=== PATIENT | female | born 1960 | race Caucasian/White ===

== ENCOUNTER → 2018-06-07 | Outpatient (REF) | payer MEDICARE | LOC: M LAB LCGH 10:42 | PROVIDERS: ATTEND Surgery | DX: K81.0 Acute cholecystitis (principal) ==

== ENCOUNTER 2018-07-10 11:14 | Day surgery (SDC) | payer MEDICARE ==
[~2018-07-10] VITALS: Ht 157.5 cm; Wt 75.3 kg
[~2018-07-10 11:14] MED LIST: ACETAMINOPHEN 325 MG TAB PO PRN; BSS with VANC/TOB/EPI for EYE CASES IR ONE; BUPR200T PO; CYCLOPENTOLATE 2% OPHTH SOLN 2ML BTL OS ONE; CYMB1CAP5 PO; HEALON DUET PRO(HEALON 10MG/ML 0.55ML & HEALON ENDOCOAT 30MG/ML 0.85ML) As Ordered ONE; LEXA1TAB2 PO; LIDOCAINE 1% SDV 5 ML VIAL As Ordered ONE; LIDOCAINE 3.5 % 1ML OPHTH TOPICAL GEL OU ONE; META1TAB22 PO; MIDAZOLAM INJ 2 MG/2 ML VIAL (J2250) As Ordered ONE; MOXIFLOXACIN IN BSS 0.25MG/0.25ML INTRACAMERAL INJ (OR EYE ONLY)(J2280) As Ordered ONE; NEUR600T PO; OFLOXACIN 0.3 % (OCUFLOX) OPTH SOL 5ML OS ONE; PHENYLEPHRINE 2.5% OPHTH SOL 2ML OS ONE; PHENYLEPHRINE HCL 10 % OPHTH. SOL 5ML OS PRN; POVIDONE-IODINE 5% OPHTH PREP SOL 30ML As Ordered ONE; PROM12.56 PO; TIZA4TAB4 PO; TRIAMCINOLONE PRES FR 40 MG/ML 1ML(TRIESENCE)(OR EYE ONLY)(J3300 PER 1MG) As Ordered ONE; TROPICAMIDE 1% OPHTH SOLN 2ML OS ONE; ZANT300T9 PO
[2018-07-10] MEDS ORDERED: fentaNYL 100 MCG/2 ML INJECTION (J3010) As Ordered ONE (13:10)
[2018-07-10] MEDS ORDERED: ACETYLCHOLINE OPHTH SOLN 1% 2ML (MIOCHOL-E) As Ordered ONE (13:25)
[2018-07-10] MEDS ORDERED: AcetaZOLAMIDE 500 MG ER CAP PO ONE (14:00)
[2018-07-10] MEDS ORDERED: TRIMETHOBENZAMIDE 300 MG CAP PO PRN (14:00)
[2018-07-10 14:10] VITALS: BP 142/67
--- NOTE | 2018-07-10 14:22 | RO ---
DATE OF SURGERY: 07/10/2018 PREOPERATIVE DIAGNOSIS: Cataract left eye. POSTOPERATIVE DIAGNOSIS: Cataract left eye. PROCEDURE. Femtosecond laser with phacoemulsification and intraocular lens implantation with optiwave refractive analysis (ORA). SURGEON: Kimmy Greenberg MD MOTOR VEHICLE ASSEMBLER: None COMPLICATIONS: None. DESCRIPTION OF PROCEDURE: The patient was brought to the operating room and laid in the supine position. The eye was prepped and draped in a sterile fashion for ophthalmic surgery following which a lid speculum was placed. A sideport incision was then made, and EndoCoat was injected into the anterior chamber. A temporal clear corneal incision was made, followed by capsulorrhexis. This was followed by hydrodissection, and the nucleus was rotated within the capsular bag. Phacoemulsification was carried out in a [id number] method, followed by aspiration of the cortical material with the help of the irrigation and aspiration cannula. Healon was then placed in the capsular bag, and the anterior chamber intraocular pressure was checked and was noted to be adequate. Multiple ORA calculations were then taken, and the intraocular lens power chosen and inserted. Excess viscoelastic was then aspirated. The wound was hydrated, intracameral moxifloxacin was given, and Sub-Tenon triamcinolone injection was given. At the end of the case, the lid speculum was removed, and the patient was returned to the recovery room in stable condition. ADDENDUM: After the cortical , Healon was placed into the capsular bag and the anterior chamber. Multiple ORA images were taken, following which the intraocular lens was chosen. At the end of the case, some leaks were noted through the temporal clear cornea incision, and two interrupted 10-0 nylon sutures were placed, as some mild gaping of the wound was noted.
== END 2018-07-10 14:20 | disposition home or self-care (01) ==
LOC: M SDC 11:14
PROVIDERS: ATTEND Ophthalmology
DX: H25.9 Unspecified age-related cataract (principal); K21.9 Gastro-esophageal reflux disease without esophagitis; E05.90 Thyrotoxicosis, unspecified without thyrotoxic crisis or storm; Z88.8 Allergy status to other drugs, medicaments and biological substances; Z79.899 Other long term (current) drug therapy; F41.9 Anxiety disorder, unspecified; F32.9 Major depressive disorder, single episode, unspecified; F17.210 Nicotine dependence, cigarettes, uncomplicated
CPT/HCPCS: 66984; 92015; J2250; J2280; J3010; J3300; V2788

== ENCOUNTER 2018-07-18 10:03 | Day surgery (SDC) | payer MEDICARE ==
[~2018-07-18] VITALS: Ht 157.5 cm; Wt 75.7 kg
[~2018-07-18 10:03] MED LIST changes: -ACETAMINOPHEN 325 MG TAB PO PRN; +CYCLOPENTOLATE 2% OPHTH SOLN 2ML BTL OD ONE; -CYCLOPENTOLATE 2% OPHTH SOLN 2ML BTL OS ONE; +OFLOXACIN 0.3 % (OCUFLOX) OPTH SOL 5ML OD ONE; -OFLOXACIN 0.3 % (OCUFLOX) OPTH SOL 5ML OS ONE; +PHENYLEPHRINE 2.5% OPHTH SOL 2ML OD ONE; -PHENYLEPHRINE 2.5% OPHTH SOL 2ML OS ONE; +PHENYLEPHRINE HCL 10 % OPHTH. SOL 5ML OD PRN; -PHENYLEPHRINE HCL 10 % OPHTH. SOL 5ML OS PRN; +TROPICAMIDE 1% OPHTH SOLN 2ML OD ONE; -TROPICAMIDE 1% OPHTH SOLN 2ML OS ONE
[2018-07-18] MEDS ORDERED: OFLOXACIN 0.3 % (OCUFLOX) OPTH SOL 5ML As Ordered ONE (11:45)
[2018-07-18] MEDS ORDERED: PHENYLEPHRINE 2.5% OPHTH SOL 2ML As Ordered ONE (11:45)
[2018-07-18] MEDS ORDERED: TROPICAMIDE 1% OPHTH SOLN 2ML As Ordered ONE (11:45)
[2018-07-18] MEDS ORDERED: CYCLOPENTOLATE 2% OPHTH SOLN 2ML BTL As Ordered ONE (11:45)
[2018-07-18] MEDS ORDERED: fentaNYL 100 MCG/2 ML INJECTION (J3010) As Ordered ONE (13:18)
--- NOTE | 2018-07-18 13:58 | RO ---
DATE OF SURGERY: 07/18/2018 PREOPERATIVE DIAGNOSIS: Cataract right eye. POSTOPERATIVE DIAGNOSIS: Cataract right eye. PROCEDURE. Femtosecond laser with phacoemulsification and intraocular lens implantation with [id number], power 21 diopter along with Optiwave refractory analysis (ORA) calculations. SURGEON: Kimmy Greenberg MD BONDING AND COMPOSITE FABRICATOR: None COMPLICATIONS: None. PROCEDURE IN DETAIL: Patient was brought to the laser room and after adequate patient interface and suction was obtained, OCT images were reviewed. The laser was subsequently activated and primary, secondary arcuate corneal incisions, capsulorrhexis and lens fragmentation was done per plan. Following which, the suction was released and patient was brought to the operating room and laid in supine position. The eye was prepped and draped in a sterile fashion for ophthalmic surgery and a lid speculum was placed. Primary, secondary arcuate corneal incisions were then opened and EndoCoat was injected into the anterior chamber. Capsulorrhexis was removed and phacoemulsification was in divide and conquer method within the capsular bag, followed by aspiration of the cortical material using the irrigation and aspiration cannula. Healon was then placed in the capsular bag and intraocular pressure was checked but noted to be adequate and ORA images were then activated after reviewing the data. Intraocular lens was chosen and inserted in the capsular bag. Excess viscoelastic was then aspirated and wound was hydrated. Sub-Tenon, tamsulosin and intracameral moxifloxacin was given; lid speculum removed and patient returned to the recovery room in stable condition. ADDENDUM: After the irrigation and aspiration of the cortical material, Healon was placed in the capsular bag anterior chamber. Intraocular pressure was checked. It was noted to be adequate after which multiple ORA calculations were reviewed and intraocular lens (IOL) power chosen.
[2018-07-18 14:20] VITALS: BP 110/75
== END 2018-07-18 14:18 | disposition home or self-care (01) ==
LOC: M SDC 10:03
PROVIDERS: ATTEND Ophthalmology
DX: H25.9 Unspecified age-related cataract (principal); K21.9 Gastro-esophageal reflux disease without esophagitis; E05.90 Thyrotoxicosis, unspecified without thyrotoxic crisis or storm; F17.210 Nicotine dependence, cigarettes, uncomplicated; Z79.899 Other long term (current) drug therapy; F41.9 Anxiety disorder, unspecified; F32.9 Major depressive disorder, single episode, unspecified; Z88.0 Allergy status to penicillin
CPT/HCPCS: 66984; 92015; J2250; J2280; J3010; J3300; V2788

== ENCOUNTER → 2019-02-26 | Outpatient (REF) | payer MEDICARE ==
[~2019-02-26] MED LIST changes: -BSS with VANC/TOB/EPI for EYE CASES IR ONE; -CYCLOPENTOLATE 2% OPHTH SOLN 2ML BTL OD ONE; -HEALON DUET PRO(HEALON 10MG/ML 0.55ML & HEALON ENDOCOAT 30MG/ML 0.85ML) As Ordered ONE; -LIDOCAINE 1% SDV 5 ML VIAL As Ordered ONE; -LIDOCAINE 3.5 % 1ML OPHTH TOPICAL GEL OU ONE; -MIDAZOLAM INJ 2 MG/2 ML VIAL (J2250) As Ordered ONE; -MOXIFLOXACIN IN BSS 0.25MG/0.25ML INTRACAMERAL INJ (OR EYE ONLY)(J2280) As Ordered ONE; -OFLOXACIN 0.3 % (OCUFLOX) OPTH SOL 5ML OD ONE; -PHENYLEPHRINE 2.5% OPHTH SOL 2ML OD ONE; -PHENYLEPHRINE HCL 10 % OPHTH. SOL 5ML OD PRN; -POVIDONE-IODINE 5% OPHTH PREP SOL 30ML As Ordered ONE; -TRIAMCINOLONE PRES FR 40 MG/ML 1ML(TRIESENCE)(OR EYE ONLY)(J3300 PER 1MG) As Ordered ONE; -TROPICAMIDE 1% OPHTH SOLN 2ML OD ONE
== END ==
LOC: M LAB LCGH 11:26
PROVIDERS: ATTEND Family Medicine
DX: Z12.4 Encounter for screening for malignant neoplasm of cervix (principal); R87.615 Unsatisfactory cytologic smear of cervix

== ENCOUNTER → 2021-03-17 | Outpatient (CLI) | payer OTHER, MEDICARE ==
[~2021-03-17] MED LIST changes: -BUPR200T PO; +BUPR200T2 PO; +TIZA10TA PO; -TIZA4TAB4 PO
== END ==
LOC: M RAD 13:16
PROVIDERS: ATTEND Physical Medicine & Rehabilitation
DX: M71.22 Synovial cyst of popliteal space [Baker], left knee (principal)